=== PATIENT | female | born 1990 | race African-American/Black ===

== ENCOUNTER 2018-11-25 11:20 | Emergency (ER) | payer MEDICAID ==
[~2018-11-25] VITALS: Ht 162.6 cm; Wt 2.7 kg
[~2018-11-25 11:20] MED LIST: ALPRAZOLAM
[2018-11-25 11:36] VITALS: BP 151/91
== END 2018-11-25 13:46 | disposition left against medical advice (07) ==
LOC: ER 11:20
DX: O90.0 Disruption of cesarean delivery wound (principal); Z53.21 Procedure and treatment not carried out due to patient leaving prior to being seen by health care provider

== ENCOUNTER 2019-03-08 11:31 | Emergency (ER) | payer MEDICAID ==
[~2019-03-08] VITALS: Ht 162.6 cm; Wt 87.0 kg
[2019-03-08 12:08] VITALS: BP 125/86
[2019-03-08] MEDS ORDERED: BACITRACIN ZINC OINT UDPKT TOP ONE (12:30)
[2019-03-08] MEDS ORDERED: LIDOCAINE HCL/PF 1% 10 MG/ML 5ML VIAL IJ ONE (12:30)
== END 2019-03-08 13:51 | disposition home or self-care (01) ==
LOC: ER 13:03
DX: L02.411 Cutaneous abscess of right axilla (principal); F12.10 Cannabis abuse, uncomplicated; F17.200 Nicotine dependence, unspecified, uncomplicated; Z98.890 Other specified postprocedural states
CPT/HCPCS: 10060; 99283; J3490; Z7610

== ENCOUNTER 2019-03-14 15:43 | Emergency (ER) | payer MEDICAID ==
[~2019-03-14] VITALS: Ht 162.6 cm; Wt 87.5 kg
[2019-03-14 15:49] VITALS: BP 135/99
== END 2019-03-14 16:45 | disposition home or self-care (01) ==
LOC: ER 15:43
DX: L02.411 Cutaneous abscess of right axilla (principal); Z48.00 Encounter for change or removal of nonsurgical wound dressing; F17.210 Nicotine dependence, cigarettes, uncomplicated
CPT/HCPCS: 10060; 99283

== ENCOUNTER 2019-03-23 11:56 | Emergency (ER) | payer MEDICAID ==
[~2019-03-23] VITALS: Ht 162.6 cm; Wt 76.0 kg
[2019-03-23 13:00] VITALS: BP 139/68
== END 2019-03-23 13:15 | disposition home or self-care (01) ==
LOC: ER 11:56
DX: Z48.00 Encounter for change or removal of nonsurgical wound dressing (principal)
CPT/HCPCS: 99282

== ENCOUNTER 2019-05-13 16:32 | Emergency (ER) | payer MEDICAID ==
[~2019-05-13] VITALS: Ht 162.6 cm; Wt 88.5 kg
[2019-05-13 16:54] VITALS: BP 135/77
== END 2019-05-13 18:31 | disposition left against medical advice (07) ==
LOC: ER 16:32
DX: Z53.21 Procedure and treatment not carried out due to patient leaving prior to being seen by health care provider (principal); F17.200 Nicotine dependence, unspecified, uncomplicated; Z98.51 Tubal ligation status

== ENCOUNTER 2022-01-04 14:13 | Emergency (ER) | payer MEDICAID ==
[~2022-01-04] VITALS: Ht 162.6 cm; Wt 93.0 kg
[2022-01-04 16:54] LABS: BASOPHILS % 0.3 % (0.0-2.0); EOSINOPHILS % 0.3 % (0.0-5.0); HEMATOCRIT. 41.7 % (36.0-48.0); HEMOGLOBIN. 14.2 g/dL (12.0-16.0); LYMPHOCYTES % 51.4 % (20.0-50.0); MEAN CORPUSCULAR VOLUME 94.1 fL (81.0-99.0); MEAN PLATELET VOLUME 8.2 fl (7.4-10.4); MONOCYTES % 4.9 % (2.0-8.0); NEUTROPHILS % 43.1 % (40.0-76.0); PLATELET 249 x1000/uL (130-400); RED BLOOD CELL COUNT 4.44 mill/uL (4.2-5.4); RED CELL DISTRIBUTION WIDTH 13.1 % (11.6-14.6)
[2022-01-04 17:06] LABS: CHLORIDE 107 mEq/L (98-107); HCG SCREEN NEGATIVE
[2022-01-04] MEDS ORDERED: KETOROLAC 60MG/2ML VIAL IM ONE (20:00)
[2022-01-04] MEDS ORDERED: IBUP-2030 MT (20:05)
[2022-01-04] MEDS ORDERED: METH-773 MT (20:05)
[2022-01-04 20:12] VITALS: BP 147/83
== END 2022-01-04 20:18 | disposition home or self-care (01) ==
LOC: ER 14:13
DX: M54.12 Radiculopathy, cervical region (principal); R51.9 Headache, unspecified; R42 Dizziness and giddiness; Z98.51 Tubal ligation status; Z98.890 Other specified postprocedural states
CPT/HCPCS: 36415; 70450; 72125; 80053; 84703; 85025; 93005; 96372; 99285; J1885